=== PATIENT | male | born 1970 | race Caucasian/White ===

== ENCOUNTER 2023-08-13 16:47 | Emergency (ER) | payer BC, SELFPAY ==
[2023-08-13 17:20] VITALS: BP 116/75; PULSE 79; RESP 20; TEMP 36.9; O2SAT 97; BMI 20.3
[2023-08-13 17:35] LABS: UTC Strep Screen (Rapid) Negative (Negative)
--- NOTE | 2023-08-13 17:55 | ED_ITS ---
Discharge Plan Disposition Patient Disposition: Home, Self-Care Condition: Good Prescriptions Prescriptions: New amoxicillin 875 mg tablet 875 mg PO Q12H 10 Days Qty: 20 0RF methylprednisolone [Medrol ([place])] 4 mg tablets,dose pack See Rx Instructions .Route .COMPLEX 6 Days Qty: 21 0RF Rx Instructions: taper pack; fluticasone propionate [Flonase Allergy Relief] 50 mcg/actuation s pray,suspension 2 spray intranasal DAILY Qty: 16 0RF Rx Instructions: administer into each nostril Referrals Follow up/Referrals: Provider,Referral, MD [Primary Care Provider] - See instructions Activity Restrictions/Add. Instructions Additional Instructions/Restrictions: *Monitor Temp, Over the counter Motrin or Tylenol as directed/as needed Tylenol every 4 hours and Motrin every 6 hours (as long as your family doctor has told you that you can take it) for fever or pain. and straight to ER if unable to lower temp less than 101.0 after medication given *Warm salt water gargles may help to soothe the throat *Throat Lozenges? *Warm fluids like tea with honey may help to soothe the throat? *Sleep elevated *Humidifier/Vaporizer *Flonase 2 sprays in each nostril daily but be aware that it may take 2-3 days before you notice improvement *Your throat swab was sent for culture. Those results are typically sent to your primary care. Be sure to follow up in 2-3 days with your family doctor/primary care physician if no improvement so they can review those result and treat if necessary. If you don?t have a primary care doctor, I recommend you get one but in the mean time, you will have to return to a walk in clinic Follow up IMMEDIATELY for new or worsening symptoms or no Noticeable improvement over the next 48-72 hours. 911 for difficulty breathing or swallowing Clinical Impressions Clinical Impression: Pharyngitis Instructions Patient Instructions: Sore Throat, DI for Ear Pain-Adult Discharge ED [place] [facility] [place] General Stated complaint: right ear pain Mode of Arrival: Ambulatory Source of Information: Patient Limitations: No Limitations Time Seen by Provider: 08/13/23 17:55 Description of Symptoms (Recalled from Triage Doc. by RN): PATIENT C/O RIGHT EAR PAIN AND DRAINAGE X 3 DAYS HEENT Symptoms (Recalled from RN notes): Yes Resp Symptoms (Recalled from RN notes): No Skin Symptoms (Recalled from RN notes): No MS Symptoms (Recalled from RN notes): No Functional Status (Recalled from RN notes): WNL History of Present Illness Provider Complaint: Patient states that he has been having pain in his right ear and right side of throat States that had strep throat last week and not sure if his ear may be infected or if he may have strep throat so he came in Related Data Previous Rx's Medication Instructions Recorded amoxicillin 875 mg tablet 875 mg PO Q12H 10 days #20 tabs 08/13/23 fluticasone propionate 50 2 spray intranasal DAILY #16 grams 08/13/23 mcg/actuation nasal spray,suspension (Flonase Allergy Relief) methylprednisolone 4 mg tablets in See Rx Instructions .Route 08/13/23 a dose pack (Medrol ([place])) .COMPLEX 6 days #21 tabs Allergies Allergy/AdvReac Type Severity Reaction Status Date / Time No Known Allergies Allergy Verified 08/13/23 17:25 Worker's Comp Is this a Worker's Comp case?: No [facility] Disclaimer: The information contained in this section may have been updated after the patient was seen, as this information can be updated by other users. Medical History (Updated 08/13/23 @ 18:03 by Tanesha Osorio APRN) No significant past medical history Social History Smoking Status: Unknown if ever smoked alcohol intake: never current occupational status: employed Travel in the last 8 weeks: None ROS Obtained: Yes All systems reviewed & no additional complaints except as documented and Yes Systems reviewed as appropriate & no additional complaints except as documented Constitutional Constitutional: Reports system reviewed and no additional complaints, except as documented, Reports as per HPI and Reports headache(s) ENT Ears, Nose, Mouth, and Throat: Reports system reviewed and no additional complaints, except as documented, Reports as per HPI, Reports otalgia, Reports headache(s), Reports nasal congestion and Reports sore throat Cardiovascular Cardiovascular: Reports system reviewed and no additional complaints, except as documented and Reports as per HPI Respiratory Respiratory: Reports system reviewed and no additional complaints, except as documented and Reports as per HPI Gastrointestinal Gastrointestingal: Reports system reviewed and no additional complaints, except as documented and as per HPI Musculoskeletal Musculoskeletal: Reports system reviewed and no additional complaints, except as documented and Reports as per HPI Neurologic Neurologic: Reports headache(s) Physical Exam General General appearance: alert and in no apparent distress ENT ENT exam: Present mucous membranes moist Expanded ENT Exam TM/Canal exam: Right TM: erythema and bulging Throat exam: Present tonsillar erythema Respiratory Respiratory exam: Present normal lung sounds bilaterally; Absent respiratory distress or wheezes Cardiovascular Cardiovascular exam: Present regular rate, normal rhythm and normal heart sounds Neurological Exam Neurological exam: Present alert, oriented X3 and normal gait Medical Decision Making Cory Inquiry Pt receiving controlled substance: No Cory was queried for this patient: No Vital Signs: 08/13/23 17:20 Temperature 98.4 F Temperature Source Oral Pulse Rate [Left Brachial] 79 Respiratory Rate 20 Blood Pressure [Left Arm] 116/75 Blood Pressure Mean [Left Arm] 88 Blood Pressure Source [Left Arm] Automatic Cuff Blood Pressure Position [Left Arm] Sitting 02 Sat by Pulse Oximetry 97 Oxygen Delivery Method Room Air Lab Data Lab results reviewed: Yes I reviewed the patient's lab results. Lab Results 08/13/23 17:25: Strep [facility] Negative Orders (Tests/Meds): ORDERS Category Date Time Status Strep Screen Confirmation Stat Micro 08/13/23 17:25 Received
[2023-08-13 18:01] VITALS: BP 116/75; PULSE 79; RESP 20; TEMP 36.9; O2SAT 97
[2023-08-13] MEDS: AMOXICILLIN 500MG CAPSULE 500 MG PO (18:10)
== END 2023-08-13 18:10 | disposition home or self-care (01) ==
PROVIDERS: Emergency Provider Nurse Practitioner
DX: J02.9 Acute pharyngitis, unspecified (principal); H92.01 Otalgia, right ear
CPT/HCPCS: 87880; 99204; 99212; G0463

== ENCOUNTER 2025-01-07 11:24 | Outpatient (CLI) | payer BC, SELFPAY ==
--- NOTE | 2025-01-07 11:33 | XR_ITS ---
FINAL REPORT CLINICAL HISTORY: ABNORMALITY OF SOFT TISSUE ON EXAMINATION COMPARISON: None FINDINGS: RIGHT FOOT Three views show no evidence of acute displaced fracture or dislocation of the visualized bony architecture. The joint spaces appear normal. There is no evidence of bony destruction or soft tissue abnormality. IMPRESSION: Unremarkable exam. Reviewed, Interpreted and Dictated by Joann Lo MD Transcribed by Nova Tariq Authenticated and [facility]
--- OUTSIDE RECORDS SUMMARY | 2025-01-07 12:07 | XMS_ITS | Clinical Summary ---
Author Organization [facility] Address [address] [place] [id number] Phone [email or web address] Care Team Providers Care Life Skills Consultant Name Role Phone Unavailable Primary Care Provider Unavailabl e Allergies No known active allergies Medications No known medications Active Problems Problem Noted Date Diagnosed Date Other and unspecified superficial injuries of ey e 02/07/2010 Overview (08/15/2017): Foreign body in lacrimal punctum 05/19/2008 Overview (08/15/2017): Other examination of ears and hearing 05/27/2007 Overview (08/15/2017): Social History Tobacco Use Types Packs/Day Years Used Date Smoking Tobacco: Every Day Smokeless Tobacco: Never Intimate Partner Violence Answer Date R ecorded Insults You Not on file 06/29/2020 Threatens You Not on file 06/29/2020 Screams at You Not on file 06/29/2020 Physically Hurt Not on file 06/29/2020 Intimate Partner Violence Score Not on file 06/29/2020 Stress Answer Date Recorded Stress in your Life Not on file 01/21/2024 Dealing with Stress 3 01/21/2024 Sex and Gender Information Value Date Recorded Sex Assigned at Not on file Legal Sex Male 8:09 AM CDT Gender Identity Not on file Sexual Orientation Not on file Last Filed Vital Signs Vital Sign Reading Time Taken Comments Blood Pressure 115/79 07/26/2015 5:15 PM CDT Pulse 80 07/26/2015 5:15 PM CDT Temperature 37 C (98.6 F) 06/25/2020 5:14 PM EDT Respiratory Rate - - Oxygen Saturation - - Inhaled Oxygen Concentration - - Weight 59.9 kg (132 lb) 05/28/2013 5:50 PM CDT Height 167.6 cm (5' 6 ) 05/28/2013 5:50 PM CDT Body Mass Index 21.31 05/28/2013 5:50 PM CDT Plan of Treatment Health Maintenance Due Date Last Done Comments CT Colonography 1972 Colonoscopy 1972 Colorectal Cancer Screening Combo 1972 DNA Cologuard 1972 Dental Cleaning/Exam 1972 FIT or FOBT Test 1972 HIV Screening 1972 Hepatitis C Screening 1972 Sigmoidoscopy 1972 Annual Preventive Exam 1990 Hep B Infection Screening - Triple Screen 1990 Hepatitis B Immunization (1 of 3 - 19+ 3-dose series) 05/22/1991 Pneumococcal: 50+ Years (1 o f 2 - PCV) 05/22/1991 Zoster Immunization (1 of 2) 2022 Covid-19 Immunization (1 - 2 -25 season) 2024 Influenza Immunization (#1) 2024 Tetanus Diphtheria and Pertu ssis Immunization (2 - Td or Tdap) 08/29/2027 08/28/2017 HIB Immunization Aged Out No longer e ligible based on patient's age to complete this topic HPV Immunization Aged Out No longer e ligible based on patient's age to complete this topic Hepatitis A Immunization Aged Out No longer eligible based on patient's age to complete this topic Polio Immunization Aged Out No longer eligible based on patient's age to complete this topic
--- OUTSIDE RECORDS SUMMARY | 2025-01-07 12:08 | XMS_ITS | Clinical Summary ---
Author Organization [facility] Address [address] [place] [address] Care Team Providers Care [place] Observer Name Role Phone Sada Katz APRN Primary Care Provider [phone] Allergies No known active allergies Medications No known medications Active Problems No known active problems Immunizations Immunization Administration Dates Next Due Tdap 08/28/2017 Family History Medical History Relation Name Comments Arthritis Father Migraines Mother Relation Name Status Comments Father Mother Social History Tobacco Use Types Packs/Day Years Used Date Smoking Tobacco: Every Day Smokeless Tobacco: Never Alcohol Use Standard Drinks/Week Comments No 0 (1 standard drink = 0.6 oz pur e alcohol) Abuse Screen Answer Date Recorded Unsafe at Home or Work/School Not on file Feels Threatened by Someone? Not on file 02/2023 Does Anyone Keep You from Co ntacting Others or Doint Things Outside the Home? Not on file 12/28/2022 Physical Sign of Abuse Present Not on file 1 Housing Stability Answer Date Recorded Current Living Arrangements Not on file 12/17 Potentially Unsafe Housing Conditions Not on zehra e 12/28/2022 Family and Community Support Answer Guillaume e Recorded Help with Day-to-Day Activities Not on file 12/28/2022 Lonely or Isolated Not on file 12/28/2022 Employment Answer Date Recorded Do you want help finding or keeping work or a kash b? Not on file 12/28/2022 Disabilities Answer Date Recorded Concentrating, Remembering, or Making Decisions Difficulty Not on file 12/28/2022 Doing Errands Independently Difficulty Not on fi le 12/28/2022 Education Answer Date Recorded Help with school or training? Not on file Preferred Language Not on file 12/28/2022 Sex and Gender Information Value Date Recorded Sex Assigned at Not on file Legal Sex Male 2:23 PM EDT Gender Identity Not on file Sexual Orientation Not on file Last Filed Vital Signs Vital Sign Reading Time Taken Comments Blood Pressure 130/70 08/28/2017 12:16 PM EDT Pulse 80 08/28/2017 12:16 PM EDT Temperature 37 C (98.6 F) 08/28/2017 12:16 PM EDT Respiratory Rate 20 08/28/2017 12:16 PM EDT Oxygen Saturation - - Inhaled Oxygen Concentration - - Weight 63 kg (138 lb 12.8 oz) 08/28/2017 12:16 P M EDT Height 170.2 cm (5' 7 ) 08/28/2017 12:16 PM EDT Body Mass Index 21.74 08/28/2017 12:16 PM EDT Plan of Treatment Health Maintenance Due Date Last Done Comments COLOGUARD 2017 COLON CANCER SCREENING 5 YEAR SIGMOIDOSCOPY 2017 COLONOSCOPY 2017 COL[address] CANCER SCREENING 2017 CT COLONOGRAPHY 2017 FECAL OCCULT BLOOD TEST 2017 FIT Testing (1 year) 2017 ANNUAL PHYSICAL 08/28/2017 HEPATITIS C SCREENING 08/28/2017 Pneumococcal Vaccine 50+ (1 of 1 - PCV) 2022 ZOSTER VACCINE (1 of 2) 2022 INFLUENZA VACCINE 10/17/2024 TDAP/TD VACCINES (2 - Td or Tdap) 08/29/2027 018 Insurance PPO Care Teams [employer] [place] Observer Relationship Specialty Start Date End Date Sada Katz APRN [address] [place] [address] PCP - General Family Medicine 08/28/17
== END 2025-01-07 23:59 | disposition home or self-care (01) ==
LOC: RAD 11:25
PROVIDERS: PCP Nurse Practitioner Family; Visit Provider Nurse Practitioner Family
DX: M79.9 Soft tissue disorder, unspecified; M79.671 Pain in right foot
CPT/HCPCS: 73630